=== PATIENT | female | born 1970 | race Two or more races ===

== ENCOUNTER 2018-07-06 23:02 | Emergency (ER) | payer SELFPAY ==
[2018-07-06] MEDS ORDERED: PROP10TA58 PO (23:21)
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
[2018-07-06] MEDS ORDERED: KETOROLAC TROM 10 MG TAB TH PO ONE (23:45)
[2018-07-06] MEDS ORDERED: ACET/HYDROC 5/325MG TH ER ONLY 2 TAB/BOTTLE PO ONE (23:45)
[2018-07-06] MEDS ORDERED: KETOROLAC 60 MG/2 ML VIAL IM ONE (23:45)
[2018-07-06] MEDS ORDERED: CYCLOBENZAPRINE HCL 10 MG TH PO ONE (23:45)
[2018-07-06] MEDS ORDERED: ORPHENADRINE 60MG/2ML INJ IM ONE (23:45)
[2018-07-06] MEDS ORDERED: KET10 PO (23:46)
[2018-07-06] MEDS ORDERED: CYCL10TA29 PO (23:46)
[2018-07-06] MEDS ORDERED: LOR5/325 PO (23:46)
[2018-07-07] VITALS: BP 175/106
[2018-07-07] MEDS ORDERED: ONDANSETRON 4 MG ODT TH SL ONE (00:05)
[2018-07-07] MEDS ORDERED: ONDA4TAB9 PO (00:06)
== END 2018-07-07 00:03 | disposition home or self-care (01) ==
LOC: ER 23:18
DX: M50.30 Other cervical disc degeneration, unspecified cervical region (principal); M51.36 Other intervertebral disc degeneration, lumbar region
CPT/HCPCS: 96372; 99284; J1885; J2360; S0119